=== PATIENT | male | born 1985 | race Caucasian/White ===

== ENCOUNTER → 2019-12-31 09:14 | Outpatient (BNVA) | payer BC, SELFPAY | PROVIDERS: PCP Internal Medicine; Visit Provider Internal Medicine | DX: Z76.89 Persons encountering health services in other specified circumstances (principal) ==

== ENCOUNTER 2021-05-12 10:09 | Outpatient (REF) | payer BC, SELFPAY ==
[2021-05-12 11:25] LABS: Hematocrit 45.2 % (42.0-52.0); Hemoglobin 13.6 g/dl (14.0-18.0); Mean Corpuscular HGB Conc 30.1 g/dl (31.0-36.0); Mean Corpuscular Hemoglobin 25.8 pg (27.0-33.0); Mean Corpuscular Volume 85.8 fL (80.0-98.0); Mean Platelet Volume 10.4 fL (9.4-12.4); Platelet Count 358 X10*3/uL (160-400); Red Blood Count 5.27 X10*6/uL (4.60-5.80); Red Cell Distribution Width 15.3 % (11.0-16.0); White Blood Count 14.6 X10*3/uL (4.8-10.8)
[2021-05-12 11:39] LABS: Alanine Aminotransferase 64 U/L (0-40); Albumin Level 4.1 g/dL (3.5-5.0); Alkaline Phosphatase 76 U/L (39-117); Anion Gap 16 (12-20); Aspartate Amino Transferase 27 U/L (5-37); Bilirubin Total 0.6 mg/dL (0.0-1.0); Blood Urea Nitrogen 15 mg/dL (9-16); C Reactive Protein 3.62 mg/dL (< or = 0.50); Calcium 9.9 mg/dL (8.4-10.2); Carbon Dioxide 28 mmol/L (22-29); Chloride 103 mmol/L (96-108); Estimated Glomerular Filt Rate > 60; Glucose Fasting 91 mg/dL (60-99); Potassium 4.5 mmol/L (3.3-5.1); Sodium 142 mmol/L (135-145); Total Protein 7.1 g/dL (6.5-8.0)
== END 2021-05-12 10:10 | disposition home or self-care (01) ==
LOC: HO.HMGCLDS 10:09
PROVIDERS: Visit Provider Internal Medicine
DX: I10 Essential (primary) hypertension (principal); R21 Rash and other nonspecific skin eruption
CPT/HCPCS: 36415; 80053; 85027; 86140

== ENCOUNTER 2022-04-20 12:19 | Observation (INO) | payer BC, SELFPAY ==
--- NOTE | ~2022-04-20 | XR_ITS ---
EXAMINATION: XR CHEST CLINICAL INFORMATION: Shortness of breath, hypoxia COMPARISON: 04/07/2018 TECHNIQUE: 2 views of the chest were obtained. FINDINGS: Persistent cardiomegaly. Lung volumes remain low with diffuse hazy opacity and coarse interstitial prominence. No pleural effusion. No dense focal consolidation. No acute osseous abnormality. XR/XR chest 2V IMPRESSION: Persistent cardiomegaly with low lung volumes and coarse interstitial prominence. The appearance suggests a combination of atelectasis and pulmonary edema.
--- NOTE | 2022-04-20 12:46 | ED_ITS ---
HPI - Skin/Abscess/Foreign Bdy General Chief complaint: General Medical <Graciela Chatterjee CNP - Last Filed: 04/20/22 13:00> Stated complaint: skin infection <Graciela Chatterjee CNP - Last Filed: 04/20/22 13:00> Time Seen by Provider: 04/20/22 14:05 <Graciela Chatterjee CNP - Last Filed: 04/20/22 13:00> Source: patient <Klever Hopkins MD - Last Filed: 04/20/22 15:01> Mode of arrival: ambulatory <Klever Hopkins MD - Last Filed: 04/20/22 15:01> Limitations: no limitations <Klever Hopkins MD - Last Filed: 04/20/22 15:01> History of Present Illness HPI narrative: 36-year-old male with multiple chronic medical problems presents emergency department from an urgent care center. He was found to have a diffuse mildly T- score meeting rash. This is similar to something that occurred a couple years ago. He had been admitted to the hospital with cellulitis that was generalized and treated with intravenous antibiotics. He describes his rash is severe. It is diffuse. Is associated with pruritus as well as pain with movement. He has had some mild chills but no documented fevers. Denies any nausea vomiting. He does describe some increasing shortness of breath and orthopnea. No increasing lower extremity edema. There is been no clear relieving or exacerbating features about a year of his complaints. <Klever Hopkins MD - Last Filed: 04/20/22 15:01> Related Data Home medications: Home Medications Medication Instructions Recorded Confirmed cholecalciferol (vitamin D3) 50 50 mcg PO DAILY 12/26/19 05/12/21 mcg (2,000 unit) capsule Previous Rx's Medication Instructions Recorded CPAP (CPAP Machine/Device) #1 ea 07/19/20 furosemide 40 mg tablet 40 mg PO DAILY #90 tabs 04/17/21 lisinopril 20 mg tablet 20 mg PO DAILY #90 tabs 04/17/21 prednisone 10 mg tablet 10 mg PO DAILY #30 tabs 05/12/21 metoprolol tartrate 37.5 mg tablet 37.5 mg PO DAILY #90 tabs 10/24/21 <Graciela Chatterjee CNP - Last Filed: 04/20/22 13:00> Allergies/Adverse reactions: Allergies Allergy/AdvReac Type Severity Reaction Status Date / Time albuterol [From VENTOLIN HFA] Allergy Unknown HIVES Verified 04/20/22 11:16 amoxicillin [From AUGMENTIN] Allergy Unknown hives, Verified 04/20/22 11:16 skin rash cefaclor [From CECLOR] Allergy Unknown HIVES Verified 04/20/22 11:16 clavulanic acid Allergy Unknown hives Verified 04/20/22 11:16 [From AUGMENTIN] milk [MILK] Allergy Unknown NAUSEA Verified 04/20/22 11:16 <Graciela Chatterjee, [facility] - Last Filed: 04/20/22 13:00> Review of Systems Review of Systems: Yes all other systems are reviewed and are negative <Klever Hopkins MD - Last Filed: 04/20/22 15:01> Constitutional: Constitutional: Reports chills <Klever Hopkins MD - Last Filed: 04/20/22 15:01> Eyes: Eyes: Reports no additional eye complaints <Klever Hopkins MD - Last Filed: 04/20/22 15:01> ENT: Reports system reviewed and no additional complaints, except as documented <Klever Hopkins MD - Last Filed: 04/20/22 15:01> Cardiovascular: Cardiovascular: Reports dyspnea on exertion and Reports orthopnea <Klever Hopkins MD - Last Filed: 04/20/22 15:01> Respiratory: Respiratory: Reports no additional respiratory complaints and Reports dyspnea on exertion <Klever Hopkins MD - Last Filed: 04/20/22 15:01> Gastrointestinal: Gastrointestinal: Reports no additional gastrointestinal complaints <Klever Hopkins MD - Last Filed: 04/20/22 15:01> Genitourinary: Genitourinary: Reports no additional male genitourinary complaints <Klever Hopkins MD - Last Filed: 04/20/22 15:01> Musculoskeletal: Musculoskeletal: Reports no additional musculoskeletal complaints <Klever Hopkins MD - Last Filed: 04/20/22 15:01> Integumentary/Breasts: Skin/Breast: Reports erythema, Reports rash and Reports skin pain <Klever Hopkins MD - Last Filed: 04/20/22 15:01> Neurologic: Reports system reviewed and no additional complaints, except as documented <Klever Hopkins MD - Last Filed: 04/20/22 15:01> Psychiatric: Psychiatric: Reports no additional psychiatric complaints <Klever Hopkins MD - Last Filed: 04/20/22 15:01> Endocrine: Endocrine: Reports no additional endocrine complaints <Klever Hopkins MD - Last Filed: 04/20/22 15:01> Hematologic/Lymphatic: Hematologic/Lymphatic: Reports no additional hematologic/lymphatic complaints <Klever Hopkins MD - Last Filed: 04/20/22 15:01> [facility] Past Medical History Attestation statement: The following information was validated with the patient. <Klever Hopkins MD - Last Filed: 04/20/22 15:01> Source: nursing notes reviewed <Klever Hopkins MD - Last Filed: 04/20/22 15:01> Medical History: Medical History CHF (congestive heart failure) Cor pulmonale HTN (hypertension) Hypoventilation Hypovitaminosis D Hypoxia Morbid obesity with BMI of 60.0-69.9, adult Obstructive sleep apnea Rash <Graciela Chatterjee CNP - Last Filed: 04/20/22 13:00> Surgical History: Surgical History History of dental surgery Hx of adenoidectomy <Graciela Chatterjee CNP - Last Filed: 04/20/22 13:00> Family History Family History: Family History Father CHF (congestive heart failure) Mother Afib HTN (hypertension) Sister No problems noted. <Graciela Chatterjee CNP - Last Filed: 04/20/22 13:00> Social History Social History: Social History Housing: Apartment Patient Tobacco Use Status: Never used Tobacco e-Cigarette/Vaping Use: Never Used Advance Directives: No Current occupational status: employed <Graciela Chatterjee CNP - Last Filed: 04/20/22 13:00> Physical Exam Vital Signs: Vital Signs: Last Vital Signs Temp 98.6 F 04/20/22 14:52 Pulse 89 04/20/22 14:52 Resp 19 04/20/22 14:52 BP 142/82 H 04/20/22 14:52 Pulse Ox 98 04/20/22 14:52 O2 Del Method 04/20/22 14:52 O2 Flow Rate 2 04/20/22 14:52 BMI result Body Mass Index 62.6 <Graciela Chatterjee CNP - Last Filed: 04/20/22 13:00> Vital Signs: Last Vital Signs Temp 98.6 F 04/20/22 14:52 Pulse 89 04/20/22 14:52 Resp 19 04/20/22 14:52 BP 142/82 H 04/20/22 14:52 Pulse Ox 98 04/20/22 14:52 O2 Del Method 04/20/22 14:52 O2 Flow Rate 2 04/20/22 14:52 BMI result Body Mass Index 62.6 <Klever Hopkins MD - Last Filed: 04/20/22 15:01> Const: General: no acute distress <Klever Hopkins MD - Last Filed: 04/20/22 15:01> Nutritional Appearance: obese <Klever Hopkins MD - Last Filed: 04/20/22 15:01> Orientation/consciousness: patient oriented x3 <Klever Hopkins MD - Last Filed: 04/20/22 15:01> Limitations: no limitations <Klever Hopkins MD - Last Filed: 04/20/22 15:01> HEENT: Head: Yes normal to inspection <MD Jose Sanders Last Filed: 04/20/22 15:01> Mouth: Normal oral and palatal mucosa present and tongue normal <Klever Hopkins MD - Last Filed: 04/20/22 15:01> Eyes: General: appearance normal, both eyes and all related structures <Klever Hopkins MD - Last Filed: 04/20/22 15:01> Neck: Neck: Yes normal visual inspection <Klever Hopkins MD - Last Filed: 04/20/22 15:01> Resp: Effort & Inspection: normal respiratory effort <MD Jose Sanders Last Filed: 04/20/22 15:01> Auscultation: crackles <MD Jose Sanders Last Filed: 04/20/22 15:01> Cardio: Rate: regular rate <MD Jose Sanders Last Filed: 04/20/22 15:01> Rhythm: regular rhythm <Klever Hopkins MD - Last Filed: 04/20/22 15:01> GI: Palpation (GI): Soft to palpation and nontender <Klever Hopkins MD - Last Filed: 04/20/22 15:01> Skin: Rashes: rashes noted (Diffuse and generalized rash this in some areas appears T-score meeting, no) <Klever Hopkins MD - Last Filed: 04/20/22 15:01> Neuro: General: patient oriented x3 and no focal motor deficits <Klever Hopkins MD - Last Filed: 04/20/22 15:01> Extrem: General: Yes normal to inspection <Klever Hopkins MD - Last Filed: 04/20/22 15:01> Psych: Mental Status: mental status grossly normal <Klever Hopkins MD - Last Filed: 04/20/22 15:01> Course Course Course Narrative: This is an RME: Additional HPI, ROS, PE not included below will be deferred to primary provider. Patient is a 36-year-old male presents to emergency department for evaluation of diffuse erythematous rash with dry flaking skin. Onset was a couple of weeks ago. Denies any recent new medications, or antibiotic usage. Also reported shortness of breath that began 2 nights ago, it is intermittent room air O2 saturation at rest 85-86 process, does improved to 90% with deep respirations, mild increased work of breathing noted. Denies associated fevers, chills, chest pain. Reports history of COPD, denies history of low O2 saturations; typically 94-96 or use of inhalers. Meeting SIRS criteria with hypoxia and tachycardia. Called research management associate, patient moved to room 6. Plan: Labs, EKG, chest x-ray, viral testing, placed on O2 via nasal cannula <Graciela Chatterjee CNP - Last Filed: 04/20/22 13:00> This is an RME: Additional HPI, ROS, PE not included below will be deferred to primary provider. Patient is a 36-year-old male presents to emergency department for evaluation of diffuse erythematous rash with dry flaking skin. Onset was a couple of weeks ago. Denies any recent new medications, or antibiotic usage. Also reported shortness of breath that began 2 nights ago, it is intermittent room air O2 saturation at rest 85-86 process, does improved to 90% with deep respirations, mild increased work of breathing noted. Denies associated fevers, chills, chest pain. Reports history of COPD, denies history of low O2 saturations; typically 94-96 or use of inhalers. Meeting SIRS criteria with hypoxia and tachycardia. Called research management associate, patient moved to room 6. Plan: Labs, EKG, chest x-ray, viral testing, placed on O2 via nasal cannula Patient has not been seen in the main emergency department. Labs have been reviewed. Patient has a diffuse rash and some areas appears T-score meeting not include the palms or soles of his feet. His labs show leukocytosis with a left shift. He has cardiomegaly with what appears to be pulmonary vascular congestion on chest x-ray. EKG shows no evidence of ischemia cardiac arrhythmia. Based on the diffuseness of his rash, evidence of possible CHF, I do believe patient would benefit from hospitalization with possible intravenous antibiotics. Will contact hospitalist discussed care further. This plan was also discussed with the patient <Klever Hopkins MD - Last Filed: 04/20/22 15:01> Reevaluation(s) Reevaluation #1: Discussed care with Dr. Reilly, hospitalist service,. Patient will be admitted. Will hold off on antibiotics at this time. Medicine reconciliation has been ordered. Patient is aware of plan. <Klever Hopkins MD - Last Filed: 04/20/22 15:01> Time: 15:00 <Klever Hopkins MD - Last Filed: 04/20/22 15:01> Medical Decision Making Medical Decision Making MDM Narrative: 28-year-old male presents with diffuse rash that is erythematous, warm to palpation in some areas do swimming but not including the oral mucosa. He has not been on any new medications. At this point is not clearly Cottrell-Sid or toxic epidermal necrolysis. Also given the diffuse nature, is not clearly cellulitis. The etiology is not entirely clear at this time. I have added on a lactic acid to his workup as well as an ESR and CRP did detect for generalized inflammatory status. I believe patient would benefit from hospitalization possible intravenous antibiotics for which I will discuss with the hospitalist. <Klever Hopkins MD - Last Filed: 04/20/22 15:01> Differential Diagnosis Differential Diagnoses: The differential diagnosis associated with the presentation includes (Allergic rash, Cottrell-Sid reaction, cellulitis, rash, dermatitis, folliculitis) <Klveer Hopkins MD - Last Filed: 04/20/22 15:01> Admission/Observation Consideration of admission/observation: Escalation of care including admission/observation considered <Klever Hopkins MD - Last Filed: 04/20/22 15:01> Consult Healthcare Provider Management of the patient was discussed with: Hospitalist <Klever Hopkins MD - Last Filed: 04/20/22 15:01> Lab Data MDM Lab Attestation statement: I reviewed the patient's lab results. <Klever Hopkins MD - Last Filed: 04/20/22 15:01> Result Diagrams: 04/20/22 13:17 04/20/22 13:17 <Graciela Chatterjee CNP - Last Filed: 04/20/22 13:00> Labs: Lab Results 04/20/22 04/20/22 04/20/22 Range/Units 13:17 13:17 13:17 WBC 16.2 H (4.8-10.8) X10*3/uL RBC 4.99 (4.60-5.80) X10*6/uL Hgb 12.7 L (14.0-18.0) g/dl Hct 41.2 L (42.0-52.0) % MCV 82.6 (80.0-98.0) fL MCH 25.5 L (27.0-33.0) pg MCHC 30.8 L (31.0-36.0) g/dl RDW 15.7 (11.0-16.0) % Plt Count 304 (160-400) X10*3/uL MPV 9.5 (9.4-12.4) fL Immature Gran % (Auto) 0.7 H (0.0-0.4) % Neut % (Auto) 79.7 H (45-73) % Lymph % (Auto) 10.1 L (20-40) % [place] % (Auto) 7.2 (2-11) % Eos % (Auto) 1.7 (0-4) % Baso % (Auto) 0.6 (0-2) % Lymph # (Auto) 1.6 (1.2-4.9) X10*3/uL [place] # (Auto) 1.2 (0.1-1.2) X10*3/uL Eos # (Auto) 0.3 (0.0-0.4) X10*3/uL Baso # (Auto) 0.1 (0.0-0.2) X10*3/uL Abs Immat Gran (auto) 0.12 H (0.00-0.03) X10*3/uL Absolute Neuts (auto) 12.9 H (2.0-8.3) x10*3/uL Absolute Nucleated RBC 0.000 (0.0-0.012) X10*3/uL Nucleated RBC % (auto) 0.0 (0.0-0.2) /100WBC D-Dimer High Sensitivty 373 NG/ML Sodium 142 (135-145) mmol/L Potassium 4.9 (3.3-5.1) mmol/L Chloride 103 (96-108) mmol/L Carbon Dioxide 28 (22-29) mmol/L Anion Gap 16 (12-20) BUN 13 (9-16) mg/dL Creatinine 1.28 (0.5-1.4) mg/dL Estim Creat Clear Calc 124.2 Estimated GFR > 60 Random Glucose 100 (60-115) mg/dL Lactic Acid (0.5-2.0) mmol/L Calcium 9.3 D (8.4-10.2) mg/dL Total Bilirubin 0.7 (0.0-1.0) mg/dL AST 34 (5-37) U/L ALT 43 H (0-40) U/L Alkaline Phosphatase 73 (39-117) U/L Troponin I High Sens (<3.5-35.0) ng/L C-Reactive Protein 16.72 H (< or = 0.50) mg/dL Total Protein 6.5 (6.5-8.0) g/dL Albumin 3.7 (3.5-5.0) g/dL COVID-19 (MARANDA) (Negative) COVID-19 Clin Com Influenza Type A (ESTELITA) (Negative) Influenza Type B (ESTELITA) (Negative) Influenza A & B Note 04/20/22 04/20/22 04/20/22 Range/Units 13:17 13:17 13:17 WBC (4.8-10.8) X10*3/uL RBC (4.60-5.80) X10*6/uL Hgb (14.0-18.0) g/dl Hct (42.0-52.0) % MCV (80.0-98.0) fL MCH (27.0-33.0) pg MCHC (31.0-36.0) g/dl RDW (11.0-16.0) % Plt Count (160-400) X10*3/uL MPV (9.4-12.4) fL Immature Gran % (Auto) (0.0-0.4) % Neut % (Auto) (45-73) % Lymph % (Auto) (20-40) % [place] % (Auto) (2-11) % Eos % (Auto) (0-4) % Baso % (Auto) (0-2) % Lymph # (Auto) (1.2-4.9) X10*3/uL [place] # (Auto) (0.1-1.2) X10*3/uL Eos # (Auto) (0.0-0.4) X10*3/uL Baso # (Auto) (0.0-0.2) X10*3/uL Abs Immat Gran (auto) (0.00-0.03) X10*3/uL Absolute Neuts (auto) (2.0-8.3) x10*3/uL Absolute Nucleated RBC (0.0-0.012) X10*3/uL Nucleated RBC % (auto) (0.0-0.2) /100WBC D-Dimer High Sensitivty NG/ML Sodium (135-145) mmol/L Potassium (3.3-5.1) mmol/L Chloride (96-108) mmol/L Carbon Dioxide (22-29) mmol/L Anion Gap (12-20) BUN (9-16) mg/dL Creatinine (0.5-1.4) mg/dL Estim Creat Clear Calc Estimated GFR Random Glucose (60-115) mg/dL Lactic Acid (0.5-2.0) mmol/L Calcium (8.4-10.2) mg/dL Total Bilirubin (0.0-1.0) mg/dL AST (5-37) U/L ALT (0-40) U/L Alkaline Phosphatase (39-117) U/L Troponin I High Sens 30.8 (<3.5-35.0) ng/L C-Reactive Protein (< or = 0.50) mg/dL Total Protein (6.5-8.0) g/dL Albumin (3.5-5.0) g/dL COVID-19 (MARANDA) Negative (Negative) COVID-19 Clin Com See Note Influenza Type A (ESTELITA) Negative (Negative) Influenza Type B (ESTELITA) Negative (Negative) Influenza A & B Note See Note 04/20/22 Range/Units 13:18 WBC (4.8-10.8) X10*3/uL RBC (4.60-5.80) X10*6/uL Hgb (14.0-18.0) g/dl Hct (42.0-52.0) % MCV (80.0-98.0) fL MCH (27.0-33.0) pg MCHC (31.0-36.0) g/dl RDW (11.0-16.0) % Plt Count (160-400) X10*3/uL MPV (9.4-12.4) fL Immature Gran % (Auto) (0.0-0.4) % Neut % (Auto) (45-73) % Lymph % (Auto) (20-40) % [place] % (Auto) (2-11) % Eos % (Auto) (0-4) % Baso % (Auto) (0-2) % Lymph # (Auto) (1.2-4.9) X10*3/uL [place] # (Auto) (0.1-1.2) X10*3/uL Eos # (Auto) (0.0-0.4) X10*3/uL Baso # (Auto) (0.0-0.2) X10*3/uL Abs Immat Gran (auto) (0.00-0.03) X10*3/uL Absolute Neuts (auto) (2.0-8.3) x10*3/uL Absolute Nucleated RBC (0.0-0.012) X10*3/uL Nucleated RBC % (auto) (0.0-0.2) /100WBC D-Dimer High Sensitivty NG/ML Sodium (135-145) mmol/L Potassium (3.3-5.1) mmol/L Chloride (96-108) mmol/L Carbon Dioxide (22-29) mmol/L Anion Gap (12-20) BUN (9-16) mg/dL Creatinine (0.5-1.4) mg/dL Estim Creat Clear Calc Estimated GFR Random Glucose (60-115) mg/dL Lactic Acid 1.8 (0.5-2.0) mmol/L Calcium (8.4-10.2) mg/dL Total Bilirubin (0.0-1.0) mg/dL AST (5-37) U/L ALT (0-40) U/L Alkaline Phosphatase (39-117) U/L Troponin I High Sens (<3.5-35.0) ng/L C-Reactive Protein (< or = 0.50) mg/dL Total Protein (6.5-8.0) g/dL Albumin (3.5-5.0) g/dL COVID-19 (MARANDA) (Negative) COVID-19 Clin Com Influenza Type A (ESTELITA) (Negative) Influenza Type B (ESTELITA) (Negative) Influenza A & B Note <Graciela Chatterjee CNP - Last Filed: 04/20/22 13:00> Lab Results 04/20/22 04/20/22 04/20/22 Range/Units 13:17 13:17 13:17 WBC 16.2 H (4.8-10.8) X10*3/uL RBC 4.99 (4.60-5.80) X10*6/uL Hgb 12.7 L (14.0-18.0) g/dl Hct 41.2 L (42.0-52.0) % MCV 82.6 (80.0-98.0) fL MCH 25.5 L (27.0-33.0) pg MCHC 30.8 L (31.0-36.0) g/dl RDW 15.7 (11.0-16.0) % Plt Count 304 (160-400) X10*3/uL MPV 9.5 (9.4-12.4) fL Immature Gran % (Auto) 0.7 H (0.0-0.4) % Neut % (Auto) 79.7 H (45-73) % Lymph % (Auto) 10.1 L (20-40) % [place] % (Auto) 7.2 (2-11) % Eos % (Auto) 1.7 (0-4) % Baso % (Auto) 0.6 (0-2) % Lymph # (Auto) 1.6 (1.2-4.9) X10*3/uL [place] # (Auto) 1.2 (0.1-1.2) X10*3/uL Eos # (Auto) 0.3 (0.0-0.4) X10*3/uL Baso # (Auto) 0.1 (0.0-0.2) X10*3/uL Abs Immat Gran (auto) 0.12 H (0.00-0.03) X10*3/uL Absolute Neuts (auto) 12.9 H (2.0-8.3) x10*3/uL Absolute Nucleated RBC 0.000 (0.0-0.012) X10*3/uL Nucleated RBC % (auto) 0.0 (0.0-0.2) /100WBC D-Dimer High Sensitivty 373 NG/ML Sodium 142 (135-145) mmol/L Potassium 4.9 (3.3-5.1) mmol/L Chloride 103 (96-108) mmol/L Carbon Dioxide 28 (22-29) mmol/L Anion Gap 16 (12-20) BUN 13 (9-16) mg/dL Creatinine 1.28 (0.5-1.4) mg/dL Estim Creat Clear Calc 124.2 Estimated GFR > 60 Random Glucose 100 (60-115) mg/dL Lactic Acid (0.5-2.0) mmol/L Calcium 9.3 D (8.4-10.2) mg/dL Total Bilirubin 0.7 (0.0-1.0) mg/dL AST 34 (5-37) U/L ALT 43 H (0-40) U/L Alkaline Phosphatase 73 (39-117) U/L Troponin I High Sens (<3.5-35.0) ng/L C-Reactive Protein 16.72 H (< or = 0.50) mg/dL Total Protein 6.5 (6.5-8.0) g/dL Albumin 3.7 (3.5-5.0) g/dL COVID-19 (MARANDA) (Negative) COVID-19 Clin Com Influenza Type A (ESTELITA) (Negative) Influenza Type B (ESTELITA) (Negative) Influenza A & B Note 04/20/22 04/20/22 04/20/22 Range/Units 13:17 13:17 13:17 WBC (4.8-10.8) X10*3/uL RBC (4.60-5.80) X10*6/uL Hgb (14.0-18.0) g/dl Hct (42.0-52.0) % MCV (80.0-98.0) fL MCH (27.0-33.0) pg MCHC (31.0-36.0) g/dl RDW (11.0-16.0) % Plt Count (160-400) X10*3/uL MPV (9.4-12.4) fL Immature Gran % (Auto) (0.0-0.4) % Neut % (Auto) (45-73) % Lymph % (Auto) (20-40) % [place] % (Auto) (2-11) % Eos % (Auto) (0-4) % Baso % (Auto) (0-2) % Lymph # (Auto) (1.2-4.9) X10*3/uL [place] # (Auto) (0.1-1.2) X10*3/uL Eos # (Auto) (0.0-0.4) X10*3/uL Baso # (Auto) (0.0-0.2) X10*3/uL Abs Immat Gran (auto) (0.00-0.03) X10*3/uL Absolute Neuts (auto) (2.0-8.3) x10*3/uL Absolute Nucleated RBC (0.0-0.012) X10*3/uL Nucleated RBC % (auto) (0.0-0.2) /100WBC D-Dimer High Sensitivty NG/ML Sodium (135-145) mmol/L Potassium (3.3-5.1) mmol/L Chloride (96-108) mmol/L Carbon Dioxide (22-29) mmol/L Anion Gap (12-20) BUN (9-16) mg/dL Creatinine (0.5-1.4) mg/dL Estim Creat Clear Calc Estimated GFR Random Glucose (60-115) mg/dL Lactic Acid (0.5-2.0) mmol/L Calcium (8.4-10.2) mg/dL Total Bilirubin (0.0-1.0) mg/dL AST (5-37) U/L ALT (0-40) U/L Alkaline Phosphatase (39-117) U/L Troponin I High Sens 30.8 (<3.5-35.0) ng/L C-Reactive Protein (< or = 0.50) mg/dL Total Protein (6.5-8.0) g/dL Albumin (3.5-5.0) g/dL COVID-19 (MARANDA) Negative (Negative) COVID-19 Clin Com See Note Influenza Type A (ESTELITA) Negative (Negative) Influenza Type B (ESTELITA) Negative (Negative) Influenza A & B Note See Note 04/20/22 Range/Units 13:18 WBC (4.8-10.8) X10*3/uL RBC (4.60-5.80) X10*6/uL Hgb (14.0-18.0) g/dl Hct (42.0-52.0) % MCV (80.0-98.0) fL MCH (27.0-33.0) pg MCHC (31.0-36.0) g/dl RDW (11.0-16.0) % Plt Count (160-400) X10*3/uL MPV (9.4-12.4) fL Immature Gran % (Auto) (0.0-0.4) % Neut % (Auto) (45-73) % Lymph % (Auto) (20-40) % [place] % (Auto) (2-11) % Eos % (Auto) (0-4) % Baso % (Auto) (0-2) % Lymph # (Auto) (1.2-4.9) X10*3/uL [place] # (Auto) (0.1-1.2) X10*3/uL Eos # (Auto) (0.0-0.4) X10*3/uL Baso # (Auto) (0.0-0.2) X10*3/uL Abs Immat Gran (auto) (0.00-0.03) X10*3/uL Absolute Neuts (auto) (2.0-8.3) x10*3/uL Absolute Nucleated RBC (0.0-0.012) X10*3/uL Nucleated RBC % (auto) (0.0-0.2) /100WBC D-Dimer High Sensitivty NG/ML Sodium (135-145) mmol/L Potassium (3.3-5.1) mmol/L Chloride (96-108) mmol/L Carbon Dioxide (22-29) mmol/L Anion Gap (12-20) BUN (9-16) mg/dL Creatinine (0.5-1.4) mg/dL Estim Creat Clear Calc Estimated GFR Random Glucose (60-115) mg/dL Lactic Acid 1.8 (0.5-2.0) mmol/L Calcium (8.4-10.2) mg/dL Total Bilirubin (0.0-1.0) mg/dL AST (5-37) U/L ALT (0-40) U/L Alkaline Phosphatase (39-117) U/L Troponin I High Sens (<3.5-35.0) ng/L C-Reactive Protein (< or = 0.50) mg/dL Total Protein (6.5-8.0) g/dL Albumin (3.5-5.0) g/dL COVID-19 (MARANDA) (Negative) COVID-19 Clin Com Influenza Type A (ESTELITA) (Negative) Influenza Type B (ESTELITA) (Negative) Influenza A & B Note <Klever Hopkins MD - Last Filed: 04/20/22 15:01> Independent Interpretation I performed an independent interpretation of an: EKG (Normal sinus rhythm heart rate 88, low voltage in the limb leads, non specific T-wave changes, no acute ST elevations or depressions, possible inferior wall ND old, nonspecific T-wave changes) and Plain X-Ray (Chest x-ray, cardiomegaly associated with pulmonary vascular congestion versus low lung volumes) <Klever Hopkins MD - Last Filed: 04/20/22 15:01> Radiology Impression Discussion of test interpretation with radiology: I have reviewed the radiologist's reading. (IMPRESSION: Persistent cardiomegaly with low lung volumes and coarse interstitial prominence. The appearance suggests a combination of atelectasis and pulmonary edema. Dictated By:Tai Machado MDSigned By:<Electronically signed by Tai Machado MD in [place]>04/20/22 [id number]) <Klever Hopkins MD - Last Filed: 04/20/22 15:01> Independent Historian Clinical information obtained from an independent historian. History obtained from or confirmed by: Other (Urgent care center) <Klever Hopkins MD - Last Filed: 04/20/22 15:01> External Record Review External record reviewed: Inpatient record (cardiology 2019) <Klever Hopkins MD - Last Filed: 04/20/22 15:01> Chronic Conditions Patient?s care impacted by: Hypertension and Other (NGA) <Klever Hopkins MD - Last Filed: 04/20/22 15:01> Discharge Plan Discharge Clinical Impression: Rash, Obstructive sleep apnea, Morbid obesity with BMI of 60.0-69.9, adult, Cardiomegaly, Pulmonary edema <Graciela Chatterjee CNP - Last Filed: 04/20/22 13:00> Patient Disposition: Admitted As Inpatient <Graciela Chatterjee CNP - Last Filed: 04/20/22 13:00> Prescriptions: No Action (DME) CPAP Machine/Device Device See Rx Instructions .ROUTE .MEDSUPPLY Qty: 1 0RF Rx Instructions: settings 19 and 11 furosemide 40 mg tablet 40 mg PO DAILY Qty: 90 3RF lisinopril 20 mg tablet 20 mg PO DAILY Qty: 90 3RF metoprolol tartrate 37.5 mg tablet 37.5 mg PO DAILY Qty: 90 1RF prednisone 10 mg tablet 10 mg PO DAILY Qty: 30 0RF Rx Instructions: 1 TABL qd for 2 weeks, then 1/2 tabl qd cholecalciferol (vitamin D3) 50 mcg (2,000 unit) capsule 50 mcg PO DAILY <Graciela Chatterjee CNP - Last Filed: 04/20/22 13:00>
[2022-04-20 12:50] VITALS: BP 175/97; PULSE 104; RESP 24; TEMP 36.4; O2SAT 88; BMI 62.6
--- NOTE | 2022-04-20 12:55 | ECG_ITS ---
Test Reason : short of breath Blood Pressure : / mmHG Vent. Rate : 088 BPM Atrial Rate : 088 BPM P-R Int : 164 ms QRS Dur : 084 ms QT Int : 378 ms P-R-T Axes : 018 -07 044 degrees QTc Int : 457 ms Normal sinus rhythm Low voltage QRS Cannot rule out Anterior infarct , age undetermined Abnormal ECG When compared with ECG of 08-APR-2018 09:57, No significant change was found Referred By: Graciela Chatterjee Electronically Signed By:ASHWIN STALEY MD
[2022-04-20 13:25] LABS: MANUAL DIFF FLAG NO
--- NOTE | 2022-04-20 13:29 | PC.NURSE ---
Patient AOx 4 neuros intact on home O2 which he wears PRN. Patient skin red peeling denies any new medications foods or environmental factors. Has had theses symptoms in the past, and was treated for cellulitis. No distress noted will CTM.
[2022-04-20 13:30] LABS: Basophils Absolute Auto 0.1 X10*3/uL (0.0-0.2); Basophils Percent Auto 0.6 % (0-2); Eosinophils Absolute Auto 0.3 X10*3/uL (0.0-0.4); Eosinophils Percent Auto 1.7 % (0-4); Hematocrit 41.2 % (42.0-52.0); Hemoglobin 12.7 g/dl (14.0-18.0); Imm Gran Abs Auto 0.12 X10*3/uL (0.00-0.03); Imm Gran Pct Auto 0.7 % (0.0-0.4); Lymphocytes Absolute Auto 1.6 X10*3/uL (1.2-4.9); Lymphocytes Percent Auto 10.1 % (20-40); Mean Corpuscular HGB Conc 30.8 g/dl (31.0-36.0); Mean Corpuscular Hemoglobin 25.5 pg (27.0-33.0); Mean Corpuscular Volume 82.6 fL (80.0-98.0); Mean Platelet Volume 9.5 fL (9.4-12.4); Monocytes Absolute Auto 1.2 X10*3/uL (0.1-1.2); Monocytes Percent Auto 7.2 % (2-11); Neutrophils Absolute Auto 12.9 x10*3/uL (2.0-8.3); Neutrophils Percent Auto 79.7 % (45-73); Platelet Count 304 X10*3/uL (160-400); Red Blood Count 4.99 X10*6/uL (4.60-5.80); Red Cell Distribution Width 15.7 % (11.0-16.0); White Blood Count 16.2 X10*3/uL (4.8-10.8)
[2022-04-20 13:37] LABS: Lactic Acid 1.8 mmol/L (0.5-2.0)
[2022-04-20 13:38] LABS: D Dimer High Sensitivity 373 NG/ML
[2022-04-20 13:40] LABS: Alanine Aminotransferase 43 U/L (0-40); Albumin Level 3.7 g/dL (3.5-5.0); Alkaline Phosphatase 73 U/L (39-117); Anion Gap 16 (12-20); Aspartate Amino Transferase 34 U/L (5-37); Bilirubin Total 0.7 mg/dL (0.0-1.0); Blood Urea Nitrogen 13 mg/dL (9-16); Calcium 9.3 mg/dL (8.4-10.2); Carbon Dioxide 28 mmol/L (22-29); Chloride 103 mmol/L (96-108); Creatinine Clr Calc Pharmacy 124.2; Estimated Glomerular Filt Rate > 60; Glucose Random 100 mg/dL (60-115); Potassium 4.9 mmol/L (3.3-5.1); Sodium 142 mmol/L (135-145); Total Protein 6.5 g/dL (6.5-8.0)
[2022-04-20 13:44] LABS: COVID-19 Test Negative (Negative); IDNOW Serial# 16C4AD1C; IDNOW Serial# BCCEAD1C; Influenza A Negative (Negative); Influenza B2 Negative (Negative)
[2022-04-20 13:47] LABS: Troponin-I High Sensitivity 30.8 ng/L (<3.5-35.0)
[2022-04-20 14:52] VITALS: BP 142/82; PULSE 89; RESP 19; TEMP 37; O2SAT 98
[2022-04-20 14:56] LABS: C Reactive Protein 16.72 mg/dL (< or = 0.50)
[2022-04-20 15:08] LABS: B Type Natriuretic Peptide 171 pg/mL (<100)
--- NOTE | 2022-04-20 15:10 | PHA.MEDREC ---
Pharmacy Consult ? Medication Reconciliation Pharmacy has completed the medication reconciliation. Patient has recent fill of furosemide 40mg on 01/25/22 per claim history. However, patient states they were unaware of that being prescribed and haven't taken it . To their knowledge, it was discontinued back in May of 2021 .
[2022-04-20 15:17] LABS: Lactic Acid 1.4 mmol/L (0.5-2.0)
[2022-04-20 15:46] LABS: Erythrocyte Sedimentation Rate 48 MM/HR (0-15)
--- NOTE | 2022-04-20 15:46 | PM.IMHP ---
History of Present Illness Date of Service: 04/20/22 Chief Complaint: skin rash 36 year old man presenting with a dry itchy diffuse body rash that started 2 weeks ago. He reported just having dry and itchy skin. He denied fever, chills, nausea, vomiting, diarrhea, recent illness, sick contacts, recent travel, improperly cooked foods. He reported that he has had this twice before, one in 2012 and another in 2021, both episodes much more mild than this one. No other symptoms present other than the erythematous rash that seems mostly dry and flaky with no macular papular areas. It is pretty diffuse on both of his arms abdomen, chest, back, groin and legs. in the ED, ESR 48, CRP 16.72. He has noted chronic leukocytosis, cxr neg for consolidation, ua negative. he will be placed on observation for workup diffuse skin rash Review of Systems Review of Systems: Denies any recent fever chills or decrease in appetite respiratory denies any shortness of breath coverage production cardiovascular denies chest pain gastrointestinal denies any dysphagia abdominal pain nausea vomiting or diarrhea genitourinary denies any dysuria frequency or hematuria musculoskeletal denies any joint pain or swelling neuropsych denies any weakness or seizures all other systems reviewed are negative red skin rash with pruritus PMFSH Medical History CHF (congestive heart failure) Cor pulmonale HTN (hypertension) Hypoventilation Hypovitaminosis D Hypoxia Morbid obesity with BMI of 60.0-69.9, adult Obstructive sleep apnea Rash Family History Father CHF (congestive heart failure) Mother Afib HTN (hypertension) Sister No problems noted. 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 Meds Allergies Allergy/AdvReac Type Severity Reaction Status Date / Time albuterol [From VENTOLIN HFA] Allergy Unknown HIVES Verified 04/20/22 11:16 amoxicillin [From AUGMENTIN] Allergy Unknown hives, Verified 04/20/22 11:16 skin rash cefaclor [From CECLOR] Allergy Unknown HIVES Verified 04/20/22 11:16 clavulanic acid Allergy Unknown hives Verified 04/20/22 11:16 [From AUGMENTIN] Active Medications: Current Medications Pharmacy Consult (Consult Rx Perform Med Rec) 1 each MISCELLANE ONCE PRN PRN Reason: Consult order Home Medications Medication Instructions Recorded Confirmed Last Taken Type cyanocobalamin (vitamin B-12) 1,000 mcg PO Q OTHER DAY 04/20/22 04/20/22 04/20/22 History 1,000 mcg tablet Physical Exam Vital Signs and Narrative: Vital Signs: Last Vital Signs Temp 98.6 F 04/20/22 14:52 Pulse 89 04/20/22 14:52 Resp 19 04/20/22 14:52 BP 142/82 H 04/20/22 14:52 Pulse Ox 98 04/20/22 14:52 O2 Del Method 04/20/22 14:52 O2 Flow Rate 2 04/20/22 14:52 BMI result Body Mass Index 62.6 Appearing in no acute distress head is normocephalic atraumatic eyes pupils are PERRLA sclera is anicteric mouth throat mucous membranes are intact and moist neck is supple no lymphadenopathy, no JVD noted lung sounds are clear to auscultation heart regular rate rhythm, clear S1, S2 positive bowel sounds, abdomen is soft, nontender neuro patient is alert x3, no focal deficits skin with diffuse erythema, dry crusted areas to arms and abdomen, rash covering abdomen, chest, bilateral arms, back. rash mostly flat other than the crusted areas Results Labs 04/20/22 13:17 04/20/22 13:17 Labs: Laboratory Results - last 24 hr 04/20/22 04/20/22 04/20/22 13:17 13:17 13:17 MCV 82.6 MCH 25.5 L MCHC 30.8 L RDW 15.7 Plt Count 304 MPV 9.5 Immature Gran % (Auto) 0.7 H Neut % (Auto) 79.7 H Lymph % (Auto) 10.1 L Fountain % (Auto) 7.2 Eos % (Auto) 1.7 Baso % (Auto) 0.6 Lymph # (Auto) 1.6 Fountain # (Auto) 1.2 Eos # (Auto) 0.3 Baso # (Auto) 0.1 Abs Immat Gran (auto) 0.12 H Absolute Neuts (auto) 12.9 H Absolute Nucleated RBC 0.000 Nucleated RBC % (auto) 0.0 D-Dimer High Sensitivty 373 Anion Gap 16 Estim Creat Clear Calc 124.2 Estimated GFR > 60 Random Glucose 100 Lactic Acid Calcium 9.3 D Total Bilirubin 0.7 AST 34 ALT 43 H Alkaline Phosphatase 73 Troponin I High Sens C-Reactive Protein 16.72 H B-Natriuretic Peptide Total Protein 6.5 Albumin 3.7 COVID-19 (MARANDA) COVID-19 Clin Com Influenza Type A (ESTELITA) Influenza Type B (ESTELITA) Influenza A & B Note 04/20/22 04/20/22 04/20/22 13:17 13:17 13:17 MCV MCH MCHC RDW Plt Count MPV Immature Gran % (Auto) Neut % (Auto) Lymph % (Auto) Fountain % (Auto) Eos % (Auto) Baso % (Auto) Lymph # (Auto) Fountain # (Auto) Eos # (Auto) Baso # (Auto) Abs Immat Gran (auto) Absolute Neuts (auto) Absolute Nucleated RBC Nucleated RBC % (auto) D-Dimer High Sensitivty Anion Gap Estim Creat Clear Calc Estimated GFR Random Glucose Lactic Acid Calcium Total Bilirubin AST ALT Alkaline Phosphatase Troponin I High Sens 30.8 C-Reactive Protein B-Natriuretic Peptide Total Protein Albumin COVID-19 (MARANDA) Negative COVID-19 Clin Com See Note Influenza Type A (ESTELITA) Negative Influenza Type B (ESTELITA) Negative Influenza A & B Note See Note 04/20/22 04/20/22 04/20/22 13:17 13:18 14:56 MCV MCH MCHC RDW Plt Count MPV Immature Gran % (Auto) Neut % (Auto) Lymph % (Auto) Fountain % (Auto) Eos % (Auto) Baso % (Auto) Lymph # (Auto) Fountain # (Auto) Eos # (Auto) Baso # (Auto) Abs Immat Gran (auto) Absolute Neuts (auto) Absolute Nucleated RBC Nucleated RBC % (auto) D-Dimer High Sensitivty Anion Gap Estim Creat Clear Calc Estimated GFR Random Glucose Lactic Acid 1.8 1.4 Calcium Total Bilirubin AST ALT Alkaline Phosphatase Troponin I High Sens C-Reactive Protein B-Natriuretic Peptide 171 H Total Protein Albumin COVID-19 (MARANDA) COVID-19 Clin Com Influenza Type A (ESTELITA) Influenza Type B (ESTELITA) Influenza A & B Note Imaging Radiologist's Impressions: Impressions Chest X-Ray 04/20/22 13:25 IMPRESSION: Persistent cardiomegaly with low lung volumes and coarse interstitial prominence. The appearance suggests a combination of atelectasis and pulmonary edema. Assessment and Plan (1) Rash: Status: Acute Plan 36 year old man placed on observation for itchy/burning skin rash present for 2 weeks with no fever, chills, nausea, vomiting, diarrhea, sick contacts, recent travel, no new medications. Skin rash unknown etiology at this time, multiple differentials question dermatitis Crusting over therefore likely coming to the end of the course Patient only reports pruritus General surgery consultation for biopsy Will start prednisone 40 mg daily Eucerin cream t.i.d. Leukocytosis Chronic No active infection at this time, negative UA, no consolidation on chest x-ray Hypertension Continue lisinopril metoprolol NGA May bring CPAP from home Morbid obesity. BMI 62.6 Discussed importance of weight management as this may be contributing to worsening of other comorbidities Time Spent With Patient Time: Total time managing care of this patient today ____ minutes. Quality Stroke Does the patient have a stroke diagnosis?: No VTE Prior VTE?: No VTE Risk Level:: Medical - moderate - high VTE Device Contraindication: Treatment Not Indicated VTE Drug Contraindication: Treatment Not Indicated
[2022-04-20] MEDS: predniSONE 20 MG TABLET 40 MG PO (16:20)
--- NOTE | 2022-04-20 16:24 | PC.NURSE ---
Pharmacy to send ordered cream will ANJU
--- NOTE | 2022-04-20 16:25 | P.CONGS_ITS ---
History of Present Illness Consult details Consult date: 04/20/22 Narrative: 36-year-old male referred to me for skin biopsy. He had this 2 week history of diffuse skin rash all over his extremities. He says that he has had a similar problem twice in the past. He denies intake of any known food item or substance that may provoke this. He denies any other significant systemic s ymptoms. Review of Systems Constitutional: Constitutional: Denies chills and Denies fever(s) Cardiovascular: Cardiovascular: Denies chest pain, Denies dyspnea and Denies dyspnea on exertion Respiratory: Respiratory: Denies cough, Denies dyspnea and Denies dyspnea on exertion Gastrointestinal: Gastrointestinal: Denies hematochezia and Denies change in bowel habits Genitourinary: Genitourinary: Denies hematuria and Denies difficulty urinating Musculoskeletal: Musculoskeletal: Denies back pain and Denies limited range of motion Neurologic: Denies focal weakness and Denies convulsions Psychiatric: Psychiatric: Denies depression and Denies mood swings PMFSH Past Medical History Medical History CHF (congestive heart failure) Cor pulmonale HTN (hypertension) Hypoventilation Hypovitaminosis D Hypoxia Morbid obesity with BMI of 60.0-69.9, adult Obstructive sleep apnea Rash Family History Family History Father CHF (congestive heart failure) Mother Afib HTN (hypertension) Sister No problems noted. 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 Meds Allergies Allergy/AdvReac Type Severity Reaction Status Date / Time albuterol [From VENTOLIN HFA] Allergy Unknown HIVES Verified 04/20/22 11:16 amoxicillin [From AUGMENTIN] Allergy Unknown hives, Verified 04/20/22 11:16 skin rash cefaclor [From CECLOR] Allergy Unknown HIVES Verified 04/20/22 11:16 clavulanic acid Allergy Unknown hives Verified 04/20/22 11:16 [From AUGMENTIN] Active Medications: Current Medications Acetaminophen (Acetaminophen 325 Mg Tablet) 650 mg PO Q6H PRN PRN Reason: Pain, Mild (Pain Scale 1-3) Cyanocobalamin (Cyanocobalamin (Vitamin B-12) 1,000 Mcg Tablet) 1,000 mcg PO Q48H CHASTITY Lisinopril (Lisinopril 20 Mg Tablet) 20 mg PO DAILY [facility]; Protocol Metoprolol Tartrate (Metoprolol Tartrate 12.5 Mg Halftab) 37.5 mg PO DAILY [facility]; Protocol Multi-Ingred Cream/Lotion/Oil/Oint (Mineral Oil/Petrolatum,White 106 Gm Tube) 1 appl TOPICAL TID [facility]; Protocol Pharmacy Consult (Consult Rx Perform Med Rec) 1 each MISCELLANE ONCE PRN PRN Reason: Consult order Prednisone (Prednisone 20 Mg Tablet) 40 mg PO DAILY [facility] Last Admin: 04/20/22 16:20 Dose: 40 mg Sodium Chloride (0.9 % Sodium Chloride Flush 3 Ml Syringe) [facility] Medications Medication Instructions Recorded Confirmed Last Taken Type cyanocobalamin (vitamin B-12) 1,000 mcg PO Q OTHER DAY 04/20/22 04/20/22 04/20/22 History 1,000 mcg tablet Physical Exam Vital Signs: Vital Signs: Last Vital Signs Temp 98.6 F 04/20/22 14:52 Pulse 89 04/20/22 14:52 Resp 19 04/20/22 14:52 BP 142/82 H 04/20/22 14:52 Pulse Ox 98 04/20/22 14:52 O2 Del Method 04/20/22 14:52 O2 Flow Rate 2 04/20/22 14:52 BMI result Body Mass Index 62.6 Const: Other: Morbidly obese General: comfortable and no acute distress Calvin entation/consciousness: patient oriented x3 Neck: Neck: Yes no lymphadenopathy Resp: Auscultation: clear to auscultation bilaterally Cardio: Rhythm: regular rhythm GI: Palpation (GI): Soft to palpation, nontender and no guarding Neuro: General: patient oriented x3 Extrem: Other: diffuse maculopapular rash, all over his upper and lower extremities Results Labs 04/20/22 13:17 04/20/22 13:17 Labs: Abnormal lab results 04/20/22 04/20/22 04/20/22 Range/Units 13:17 13:17 13:17 WBC 16.2 H (4.8-10.8) X10*3/uL Hgb 12.7 L (14.0-18.0) g/dl Hct 41.2 L (42.0-52.0) % MCH 25.5 L (27.0-33.0) pg MCHC 30.8 L (31.0-36.0) g/dl Immature Gran % (Auto) 0.7 H (0.0-0.4) % Neut % (Auto) 79.7 H (45-73) % Lymph % (Auto) 10.1 L (20-40) % Abs Immat Gran (auto) 0.12 H (0.00-0.03) X10*3/uL Absolute Neuts (auto) 12.9 H (2.0-8.3) x10*3/uL ESR (0-15) MM/HR ALT 43 H (0-40) U/L C-Reactive Protein 16.72 H (< or = 0.50) mg/dL B-Natriuretic Peptide 171 H (<100) pg/mL 04/20/22 Range/Units 14:56 WBC (4.8-10.8) X10*3/uL Hgb (14.0-18.0) g/dl Hct (42.0-52.0) % MCH (27.0-33.0) pg MCHC (31.0-36.0) g/dl Immature Gran % (Auto) (0.0-0.4) % Neut % (Auto) (45-73) % Lymph % (Auto) (20-40) % Abs Immat Gran (auto) (0.00-0.03) X10*3/uL Absolute Neuts (auto) (2.0-8.3) x10*3/uL ESR 48 H (0-15) MM/HR ALT (0-40) U/L C-Reactive Protein (< or = 0.50) mg/dL B-Natriuretic Peptide (<100) pg/mL Short CBC 04/20/22 Range/Units 13:17 WBC 16.2 H (4.8-10.8) X10*3/uL Hgb 12.7 L (14.0-18.0) g/dl Hct 41.2 L (42.0-52.0) % Plt Count 304 (160-400) X10*3/uL BMP 04/20/22 13:17 Sodium 142 Potassium 4.9 Chloride 103 Carbon Dioxide 28 BUN 13 Creatinine 1.28 Calcium 9.3 D Liver Function 04/20/22 Range/Units 13:17 Total Bilirubin 0.7 (0.0-1.0) mg/dL AST 34 (5-37) U/L ALT 43 H (0-40) U/L Alkaline Phosphatase 73 (39-117) U/L Albumin 3.7 (3.5-5.0) g/dL All other labs normal. Assessment and Plan (1) Rash: Status: Acute I have been requested to do a skin biopsy because of this rash. Explained this procedure to the patient. I reviewed the risks, benefits, alternatives. He had given verbal consent. I chose an area in the right lower leg. I prepped and draped this. I used lidocaine 1% for local anesthesia. I used a punch biopsy to excise a sample of the skin and subcutaneous fat. This was sent as a specimen. Slide dry dressings with gauze. He tolerated procedure well. There were no immediate complications He may require the counter medications for pain. I have instructed him to do the dressing changes with gauze for this biopsy site. Time Spent With Patient Time: Total time managing care of this patient today ____ minutes. Procedures Date of Service Date of Service: 04/20/22
--- NOTE | 2022-04-20 16:27 | MHC.EDTECH ---
@1600 called [facility] medical records line to get records for the patient. I was told by the provider to ask for records regarding cellulitis or a diffuse rash. The individual I spoke with stated they would send records over right away.
--- NOTE | 2022-04-20 16:30 | W.PM.OPN ---
Operative Note Operative Note Date of Service: 04/20/22 Narrative: Preop diagnosis: diffuse maculopapular rash postop diagnosis: The same procedure: Punch biopsy of the skin and subcutaneous fat at bedside under local anesthesia An area on the right lower leg was prepped and draped. Lidocaine 1% was used for local anesthesia. I used the dermal punch biopsy excise a discoid piece of skin and subcutaneous fat. This was sent as a specimen. I applied dry dressings. He tolerated procedure well. There were no immediate complications He may need oral pain medications with Tylenol and ibuprofen for pain control. Dressing changes should be done daily using dry gauze.
--- NOTE | 2022-04-20 16:42 | PC.NURSE ---
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
[2022-04-20] MEDS: Mineral Oil/Petrolatum,White 106 GM Tube 1 APPL TOPICAL ×2 (17:08→19:39)
--- NOTE | 2022-04-20 17:44 | PC.NURSE ---
Dressing to RLE biopsy site leaking blood down pt leg. Area cleansed with saline, DSD applied with kerlix wrap
[2022-04-20 19:08] VITALS: BP 173/87; PULSE 84; RESP 18; TEMP 37.1; O2SAT 89
[2022-04-20] MEDS: 0.9 % Sodium Chloride Flush 3 ML SYRINGE IVFLUSH (19:37)
[2022-04-21 03:31] VITALS: BP 175/97; PULSE 69; RESP 18; TEMP 36.1; O2SAT 97
[2022-04-21 06:01] LABS: Hematocrit 38.8 % (42.0-52.0); Hemoglobin 11.9 g/dl (14.0-18.0); Mean Corpuscular HGB Conc 30.7 g/dl (31.0-36.0); Mean Corpuscular Hemoglobin 25.4 pg (27.0-33.0); Mean Corpuscular Volume 82.7 fL (80.0-98.0); Platelet Count 274 X10*3/uL (160-400); Red Blood Count 4.69 X10*6/uL (4.60-5.80); Red Cell Distribution Width 15.2 % (11.0-16.0); White Blood Count 11.5 X10*3/uL (4.8-10.8)
[2022-04-21 06:21] LABS: Anion Gap 16 (12-20); Blood Urea Nitrogen 16 mg/dL (9-16); Carbon Dioxide 27 mmol/L (22-29); Chloride 104 mmol/L (96-108); Creatinine Clr Calc Pharmacy 157.4; Estimated Glomerular Filt Rate > 60; Glucose Random 92 mg/dL (60-115); Sodium 142 mmol/L (135-145)
--- NOTE | 2022-04-21 06:23 | PC.NURSE ---
Assumed care of patient at approx. 1845. Patient alert, appropriate, oriented *4. Ambulates in room minimally. Dressing to puncture biopsy site on the right lower leg changed; NS cleansed and pressure dressing applied. Skin care provided, monitored for any signs of worsening. CPAP at with assist from respiratory therapy. Resting quietly.
[2022-04-21 07:51] VITALS: BP 134/63; PULSE 74; RESP 18; TEMP 36.2; O2SAT 99
--- NOTE | 2022-04-21 08:19 | P.PNIM_ITS ---
Subjective Subjective Date of Service: 04/21/22 Review of Systems Follow up diffuse skin rash skin with more dryness and crusting today Physical Exam Vital Signs: Vital Signs: Last Vital Signs Temp 97.1 F 04/21/22 07:51 Pulse 74 04/21/22 07:51 Resp 18 04/21/22 07:51 BP 134/63 04/21/22 07:51 Pulse Ox 99 04/21/22 07:51 O2 Del Method 04/21/22 07:51 O2 Flow Rate 2.0 04/21/22 07:51 BMI result Body Mass Index 62.6 Appearing in no acute distress lung sounds are clear to auscultation heart regular rate rhythm, clear S1, S2 positive bowel sounds, abdomen is soft, nontender neuro patient is alert x3, no focal deficits Diffuse Erythematous rash to upper extremities with macular papular rash to lower extremities Skin crusting throughout Objective Data Active Medications Acetaminophen (Acetaminophen 325 Mg Tablet) 650 mg PO Q6H PRN PRN Reason: Pain, Mild (Pain Scale 1-3) Cyanocobalamin (Cyanocobalamin (Vitamin B-12) 1,000 Mcg Tablet) 1,000 mcg PO Q48H CHASTITY Lisinopril (Lisinopril 20 Mg Tablet) 20 mg PO DAILY [facility]; Protocol Metoprolol Tartrate (Metoprolol Tartrate 12.5 Mg Halftab) 37.5 mg PO DAILY [facility]; Protocol Multi-Ingred Cream/Lotion/Oil/Oint (Mineral Oil/Petrolatum,White 106 Gm Tube) 1 appl TOPICAL TID [facility]; Protocol Last Admin: 04/20/22 19:39 Dose: 1 appl Documented By: ENID Pharmacy Consult (Consult Rx Perform Med Rec) 1 each MISCELLANE ONCE PRN PRN Reason: Consult order Prednisone (Prednisone 20 Mg Tablet) 40 mg PO DAILY [facility] Last Admin: 04/20/22 16:20 Dose: 40 mg Documented By: HAYLEY Sodium Chloride (0.9 % Sodium Chloride Flush 3 Ml Syringe) 3 ml IVFLUSH QSHIFT [facility] Last Admin: 04/20/22 19:37 Dose: 3 ml Documented By: ENID Labs 04/21/22 05:18 04/21/22 05:18 Labs: Laboratory Results - last 24 hr 04/20/22 04/20/22 04/20/22 13:17 13:17 13:17 MCV 82.6 MCH 25.5 L MCHC 30.8 L RDW 15.7 Plt Count 304 MPV 9.5 Immature Gran % (Auto) 0.7 H Neut % (Auto) 79.7 H Lymph % (Auto) 10.1 L Rogers % (Auto) 7.2 Eos % (Auto) 1.7 Baso % (Auto) 0.6 Lymph # (Auto) 1.6 Rogers # (Auto) 1.2 Eos # (Auto) 0.3 Baso # (Auto) 0.1 Abs Immat Gran (auto) 0.12 H Absolute Neuts (auto) 12.9 H Absolute Nucleated RBC 0.000 Nucleated RBC % (auto) 0.0 ESR D-Dimer High Sensitivty 373 Anion Gap 16 Estim Creat Clear Calc 124.2 Estimated GFR > 60 Random Glucose 100 Lactic Acid Calcium 9.3 D Total Bilirubin 0.7 AST 34 ALT 43 H Alkaline Phosphatase 73 Troponin I High Sens C-Reactive Protein 16.72 H B-Natriuretic Peptide Total Protein 6.5 Albumin 3.7 COVID-19 (MARANDA) COVID-19 Clin Com Influenza Type A (ESTELITA) Influenza Type B (ESTELITA) Influenza A & B Note 04/20/22 04/20/22 04/20/22 13:17 13:17 13:17 MCV MCH MCHC RDW Plt Count MPV Immature Gran % (Auto) Neut % (Auto) Lymph % (Auto) Rogers % (Auto) Eos % (Auto) Baso % (Auto) Lymph # (Auto) Rogers # (Auto) Eos # (Auto) Baso # (Auto) Abs Immat Gran (auto) Absolute Neuts (auto) Absolute Nucleated RBC Nucleated RBC % (auto) ESR D-Dimer High Sensitivty Anion Gap Estim Creat Clear Calc Estimated GFR Random Glucose Lactic Acid Calcium Total Bilirubin AST ALT Alkaline Phosphatase Troponin I High Sens 30.8 C-Reactive Protein B-Natriuretic Peptide Total Protein Albumin COVID-19 (MARANDA) Negative COVID-19 Clin Com See Note Influenza Type A (ESTELITA) Negative Influenza Type B (ESTELITA) Negative Influenza A & B Note See Note 04/20/22 04/20/22 04/20/22 13:17 13:18 14:56 MCV MCH MCHC RDW Plt Count MPV Immature Gran % (Auto) Neut % (Auto) Lymph % (Auto) Rogers % (Auto) Eos % (Auto) Baso % (Auto) Lymph # (Auto) Rogers # (Auto) Eos # (Auto) Baso # (Auto) Abs Immat Gran (auto) Absolute Neuts (auto) Absolute Nucleated RBC Nucleated RBC % (auto) ESR 48 H D-Dimer High Sensitivty Anion Gap Estim Creat Clear Calc Estimated GFR Random Glucose Lactic Acid 1.8 Calcium Total Bilirubin AST ALT Alkaline Phosphatase Troponin I High Sens C-Reactive Protein B-Natriuretic Peptide 171 H Total Protein Albumin COVID-19 (MARANDA) COVID-19 Clin Com Influenza Type A (ESTELITA) Influenza Type B (ESTELITA) Influenza A & B Note 04/20/22 04/21/22 04/21/22 14:56 05:18 05:18 MCV 82.7 MCH 25.4 L MCHC 30.7 L RDW 15.2 Plt Count 274 MPV 10.0 Immature Gran % (Auto) Neut % (Auto) Lymph % (Auto) Rogers % (Auto) Eos % (Auto) Baso % (Auto) Lymph # (Auto) Rogers # (Auto) Eos # (Auto) Baso # (Auto) Abs Immat Gran (auto) Absolute Neuts (auto) Absolute Nucleated RBC 0.000 Nucleated RBC % (auto) 0.0 ESR D-Dimer High Sensitivty Anion Gap 16 Estim Creat Clear Calc 157.4 Estimated GFR > 60 Random Glucose 92 Lactic Acid 1.4 Calcium 9.0 Total Bilirubin AST ALT Alkaline Phosphatase Troponin I High Sens C-Reactive Protein B-Natriuretic Peptide Total Protein Albumin COVID-19 (AMRANDA) COVID-19 Clin Com Influenza Type A (ESTELITA) Influenza Type B (ESTELITA) Influenza A & B Note Assessment and Plan (1) Rash: Status: Acute Plan 36 year old man placed on observation for itchy/burning skin rash present for 2 weeks with no fever, chills, nausea, vomiting, diarrhea, sick contacts, recent travel, no new medications. Skin rash unknown etiology at this time, multiple differentials question dermatitis Crusting over therefore likely coming to the end of the course Patient only reports pruritus s/p punch biopsy prednisone 40 mg daily Eucerin cream t.i.d. Leukocytosis. trending down Chronic No active infection at this time, negative UA, no consolidation on chest x-ray Hypertension Continue lisinopril metoprolol NGA May bring CPAP from home Morbid obesity.? BMI 62.6 Discussed importance of weight management as this may be contributing to worsening of other comorbidities DVT prophylaxis with early ambulation attending Dr. Burton Full code Time Spent With Patient Time: Total time managing care of this patient today ____ minutes. Quality Stroke Does the patient have a stroke diagnosis?: No VTE Prior VTE?: No VTE Risk Level:: Medical - moderate - high VTE Device Contraindication: Treatment Not Indicated VTE Drug Contraindication: Treatment Not Indicated
[2022-04-21] MEDS: diphenhydrAMINE HCL 25 MG CAPSULE 50 MG PO ×2 (08:54→21:37)
[2022-04-21] MEDS: lisinopriL 20 MG TABLET PO (08:54)
[2022-04-21] MEDS: 0.9 % Sodium Chloride Flush 3 ML SYRINGE IVFLUSH ×3 (08:54→21:38)
[2022-04-21] MEDS: Metoprolol Tartrate 12.5 MG HALFTAB 37.5 MG PO (08:54)
[2022-04-21] MEDS: predniSONE 20 MG TABLET 40 MG PO (08:54)
[2022-04-21] MEDS: Mineral Oil/Petrolatum,White 106 GM Tube 1 APPL TOPICAL ×3 (08:57→20:01)
--- NOTE | 2022-04-21 11:49 | MHC.CM.PN ---
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
[2022-04-21 12:00] VITALS: BP 126/69; PULSE 73; RESP 18; TEMP 36.6; O2SAT 97
[2022-04-21] MEDS: Acetaminophen 325 MG TABLET 650 MG PO (13:48)
[2022-04-21 15:45] VITALS: BP 136/61; PULSE 68; RESP 18; TEMP 36.3; O2SAT 100
[2022-04-21 19:17] VITALS: BP 141/79; PULSE 79; RESP 22; TEMP 36.2; O2SAT 97
[2022-04-22 03:32] VITALS: BP 133/75; PULSE 71; RESP 20; TEMP 36.1; O2SAT 95
[2022-04-22 08:00] VITALS: BP 145/64; PULSE 87; RESP 19; TEMP 36.3; O2SAT 96
[2022-04-22] MEDS: Mineral Oil/Petrolatum,White 106 GM Tube 1 APPL TOPICAL (08:36)
[2022-04-22] MEDS: Cyanocobalamin (Vitamin B-12) 1,000 MCG TABLET 1000 MCG PO (08:36)
[2022-04-22] MEDS: Metoprolol Tartrate 12.5 MG HALFTAB 37.5 MG PO (08:36)
[2022-04-22] MEDS: predniSONE 20 MG TABLET 40 MG PO (08:36)
[2022-04-22] MEDS: lisinopriL 20 MG TABLET PO (08:36)
--- NOTE | 2022-04-22 09:08 | PM.DS ---
DS: Providers Provider Date of Service: 04/22/22 Date of admission: 04/20/22 16:10 Primary care physician: Jeannine Santos MD Consults: 04/20/22 15:06 Consult to General Surgery Routine Consulting Provider: Meng Cox Reason for consultation: skin biopsy Has provider been notified: No Attending physician on discharge: Isaiah Becker Discharging clinician: Lisa Reilly DS: Diagnosis Discharge Diagnosis (1) Rash: Status: Acute DS: Summary Hospital Course Hospital Course: 36 year old man presenting with a dry itchy diffuse body rash that started 2 weeks ago. He reported just having dry and itchy skin.? He denied fever, chills, nausea, vomiting, diarrhea, recent illness, sick contacts, recent travel, improperly cooked foods.? He reported that he has had this twice before, one in 2012 and another in 2021, both episodes much more mild than this one.? No other symptoms present other than the erythematous rash that seems mostly dry and flaky with no macular papular areas.? It is pretty diffuse on both of his arms abdomen, chest, back, groin and legs.? in the ED, ESR 48, CRP 16.72. He has noted chronic leukocytosis, cxr neg for consolidation, ua negative.? he will be placed on observation for workup diffuse skin rash Skin rash. Improving unknown etiology at this time, multiple differentials question dermatitis Very unlikely drug rash as patient has no new or current medications that are high risk of causing significant crusting and dryness, cool showers. emolient cream TID s/p punch biopsy, patient may request record for f/u dermatology apt prednisone taper, completed 2 days of 40mg, continue 30mg for 2 days, 20mg 2 days and 10mg 2 days Eucerin cream t.i.d. Leukocytosis. Trended down Chronic No active infection at this time, negative UA, no consolidation on chest x-ray Hypertension Continue lisinopril metoprolol NGA cpap Morbid obesity.? BMI 62.6 Discussed importance of weight management as this may be contributing to worsening of other comorbidities Time Spent with Patient Time attestation: Total time managing care of this patient today ____ minutes. Discharge coordination time: Greater than 30 minutes Quality: Safe Use of Opioids Does Pt have an Active Cancer Diagnosis on the Problem List?: No Quality: Stroke Does the patient have a stroke diagnosis?: No Physical Exam Vital Signs: Vital Signs: Last Vital Signs Temp 97.3 F 04/22/22 08:00 Pulse 87 04/22/22 08:00 Resp 19 04/22/22 08:00 BP 145/64 H 04/22/22 08:00 Pulse Ox 96 04/22/22 08:00 O2 Del Method 04/22/22 08:00 O2 Flow Rate 2 04/21/22 19:17 BMI result Body Mass Index 62.6 Appearing in no acute distress head is normocephalic atraumatic eyes pupils are PERRLA sclera is anicteric mouth throat mucous membranes are intact and moist neck is supple no lymphadenopathy, no JVD noted lung sounds are clear to auscultation heart regular rate rhythm, clear S1, S2 positive bowel sounds, abdomen is soft, nontender neuro patient is alert x3, no focal deficits Erythema and dry flaky skin diffusely to upper and lower extremities, trunk and abdomen DS: Data Data Completed and Pending Pending studies at discharge: Pending at discharge 04/20/22 16:06 Surgical Path [Surgical] [PTH] Routine Labs on day of discharge: Preliminary micro results at discharge 04/20/22 13:17 Blood Culture - Preliminary Blood - Venous No growth after 24 hours. 04/20/22 13:17 Blood Culture - Preliminary Blood - Venous No growth after 24 hours. Discharge Plan Discharge Anticipated Discharge Date/Time: 04/22/22 09:04 Patient Disposition: Home, Self-Care Discharge Diagnosis: Skin rash, possible dermatitis Referrals: Jeannine Santos MD [Primary Care Provider] - 1 Week Discharge Medications: New prednisone 20 mg Tablet See Taper PO DAILY Qty: 12 0RF Taper: Prednisone 30 mg daily for 2 Days and 6 Hours 20 mg daily for 2 Days and 4 Hours 10 mg daily for 2 Days and 2 Hours Continued (DME) CPAP Machine/Device Device See Rx Instructions .ROUTE .MEDSUPPLY Qty: 1 0RF Rx Instructions: settings 19 and 11 lisinopril 20 mg tablet 20 mg PO DAILY Qty: 90 3RF metoprolol tartrate 37.5 mg tablet 37.5 mg PO DAILY Qty: 90 1RF cyanocobalamin (vitamin B-12) 1,000 mcg Tablet 1,000 mcg PO Q OTHER DAY Discharge Orders: Discharge Order (Routine); Ordered 04/22/22 Ordered By: Lisa Reilly Diet: Advance to usual diet Activity on Discharge: As tolerated Stand Alone Forms: Patient Portal Discharge page Care Plan Goals: Complete resolution of symptoms Take cool showers to relieve pruritus and avoid dryness Use Eucerin cream or Aquaphor 3 times daily for dry skin Health Concerns: Skin rash, possible dermatitis Plan of Treatment: Follow-up with Dermatology for further workup and treatment acute rash Take all medications as prescribed Assessment: see discharge summary
--- NOTE | 2022-04-22 09:16 | MHC.CM.PN ---
PT WILL DC HOME TODAY WITH NO SERVICES PT WILL ARRANGE TRANSPORT
== END 2022-04-22 10:14 | disposition home or self-care (01) ==
LOC: HO.ED 15:01 → HO.EDOVER 16:16 → HO.S3 16:30
PROVIDERS: Nurse Practitioner Family; Admitting Provider Nurse Practitioner Acute Care; Emergency Provider Emergency Medicine; PCP Internal Medicine; Visit Provider Nurse Practitioner Acute Care
DX: L83 Acanthosis nigricans (principal); L53.9 Erythematous condition, unspecified; G47.33 Obstructive sleep apnea (adult) (pediatric); E66.01 Morbid (severe) obesity due to excess calories; Z68.44 Body mass index [BMI] 60.0-69.9, adult; J81.1 Chronic pulmonary edema; I11.9 Hypertensive heart disease without heart failure
CPT/HCPCS: 11104; 36415; 71046; 80048; 80053; 83605; 83880; 84484; 85025; 85027; 85379; 85652; 86140; 87040; 87502; 87635; 88305; 88312; 93005; 99221; 99285